=== PATIENT | female | born 1975 | race African-American/Black ===

== ENCOUNTER 2017-01-29 11:32 | Emergency (ER) | payer SELFPAY ==
[2017-01-29 11:38] VITALS: BP 147/112
[2017-01-29] MEDS ORDERED: HYDROCODONE/ACETAMINOPHEN 5-325 MG TABLET PO ONE (13:01)
--- NOTE | 2017-01-29 13:07 | ER Document Report ---
ED Hip Pain/Injury - General Mode of Arrival: Ambulatory Information source: Patient TRAVEL OUTSIDE OF THE [place] IN LAST 30 DAYS: No - HPI Patient complains to provider of: Pain, Hip - right Occurred: This morning Context: Fell/slipped Symptoms since fall: Other - see notes above Associated Symptoms: Other - see notes above - General Chief Complaint: Hip Pain Stated Complaint: HIP PAIN Time Seen by Provider: 01/29/17 12:43 Notes: 41 year old female with history of hypertension and arthritis presents to the ED complaining of right hip pain that started this morning after falling on her right hip yesterday when getting out of the bath tub. Patient states that she did not fall hard on her hip. Patient reports that she was not experiencing any pain immediately after the fall, but woke up this morning with pain from the right hip to right calf and reports to seeing veins bulging out of her right calf. Patient denies taking any medications. (EVA GE) - Related Data Allergies/Adverse Reactions: No Known Allergies Allergy (Verified 01/29/17 11:37) Past Medical History - General Information source: Patient - Social History Smoking Status: Current Every Day Smoker Family History: DM, Hypertension Patient has suicidal ideation: No Patient has homicidal ideation: No - Past Medical History Cardiac Medical History: Reports: Hx Hypertension Renal/ Medical History: Denies: Hx Peritoneal Dialysis Musculoskeltal Medical History: Reports Hx Arthritis, Reports Hx Musculoskeletal Trauma Past Surgical History: Reports: Hx Gynecologic Surgery - Uterine laproscopy for endometriosis - Immunizations Immunizations up to date: Yes Hx Diphtheria, Pertussis, Tetanus Vaccination: Yes Review of Systems - Review of Systems Constitutional: No symptoms reported EENT: No symptoms reported Cardiovascular: No symptoms reported Respiratory: No symptoms reported Gastrointestinal: No symptoms reported Genitourinary: No symptoms reported Female Genitourinary: No symptoms reported Musculoskeletal: See HPI, Joint pain - right hip, Other - right calf tenderness Skin: No symptoms reported Hematologic/Lymphatic: No symptoms reported Neurological/Psychological: No symptoms reported -: Yes All other systems reviewed and negative Physical Exam - General General appearance: Alert In distress: None - HEENT Head: Normocephalic, Atraumatic Eyes: Normal Extraocular movements intact: Yes Pupils: PERRL - Respiratory Respiratory status: No respiratory distress Breath sounds: Normal - Cardiovascular Rhythm: Regular Heart sounds: Normal auscultation - Abdominal Inspection: Normal Distension: No distension Tenderness: Nontender - Back Back: Normal - Extremities General upper extremity: Normal inspection, Normal ROM General lower extremity: Normal ROM. No: Normal inspection - see calf and hip exam below Hip: Tender - right lateral and posterior hip is tender to palpation. No: Normal Calf: Tender - right anterior tibialis muscles is tender to palpation. No: Normal - Neurological Neuro grossly intact: Yes - Psychological Associated symptoms: Normal affect, Normal mood - Skin Skin Temperature: Warm Skin Moisture: Dry Skin Color: Normal Discharge - Discharge Clinical Impression: Contusion of hip Qualifiers: Encounter type: initial encounter Laterality: right Qualified Code(s): S70.01XA - Contusion of right hip, initial encounter Muscle strain, lower leg Qualifiers: Encounter type: initial encounter Laterality: right Qualified Code(s): S86.911A - Strain of unspecified muscle(s) and tendon(s) at lower leg level, right leg, initial encounter Condition: Stable Disposition: HOME, SELF-CARE Additional Instructions: Contusion: Your injury has resulted in a contusion -- a crushing of the deep tissues. No injury to important structures was detected during the physician's exam. Contusions vary in the amount of pain they cause, and in the length of time required for healing. Typically, the area will become bruised, and will remain painful to touch for two or three weeks. However, most patients are back to working and playing within a few days. After the initial period of rest and cold-packs, your symptoms (together with the doctor's recommendations) will determine how rapidly you can get back to full activity. Usually this means "do what feels okay, but don't do things that hurt." If re-examination was recommended, it's important to follow up as instructed. Call the doctor or return any time if pain increases, if swelling becomes severe, if you develop numbness or weakness in an injured extremity, or if any other alarming symptoms occur. USE THE CRUTCHES TO LIMIT WEIGHT BEARING. TAKE THE MEDICATION PRESCRIBED. REST. FOLLOW UP WITH A LOCAL MEDICAL DOCTOR IF NOT IMPROVING. RETURN TO THE EMERGENCY ROOM IF ANY NEW OR WORSENING SYMPTOMS. Prescriptions: Tramadol HCl 50 mg PO QID #20 tablet Forms: Return to Work Scribe Attestation: 01/29/17 14:09 I personally performed the services described in the documentation, reviewed and edited the documentation which was dictated to the scribe in my presence, and it accurately records my words and actions. (ADA ROBBINS) Scribe Documentation - Scribe Written by Armando:: Armando Vazquez, 01/29/2017 1311 acting as scribe for :: Heather
--- NOTE | 2017-01-29 13:49 | RADIOLOGY REPORT (SQ) ---
EXAM DESCRIPTION: FEMUR RIGHT COMPLETED DATE/TIME: 01/29/2017 1:41 pm REASON FOR STUDY: fell on hip last night, pain from hip to leg COMPARISON: None. NUMBER OF VIEWS: Two views. TECHNIQUE: Two radiographic images acquired of the right femur to include hip and knee in at least o ne projection. LIMITATIONS: None. FINDINGS: MINERALIZATION: Normal. BONES: No acute fracture. No worrisome bone lesions. SOFT TISSUES: No obvious swelling or foreign body. OTHER: No other significant finding. IMPRESSION: NEGATIVE STUDY OF THE RIGHT FEMUR. NO RADIOGRAPHIC EVIDENCE OF ACUTE INJURY. TECHNICAL DOCUMENTATION: JOB ID: [id number] [employer]- All Rights Reserved
== END 2017-01-29 14:45 | disposition home or self-care (01) ==
LOC: ER 11:32
DX: S70.01XA Contusion of right hip, initial encounter (principal); S86.911A Strain of unspecified muscle(s) and tendon(s) at lower leg level, right leg, initial encounter; M25.551 Pain in right hip; W19.XXXA Unspecified fall, initial encounter; I10 Essential (primary) hypertension; F17.200 Nicotine dependence, unspecified, uncomplicated
CPT/HCPCS: 99283

== ENCOUNTER 2019-01-31 21:31 | Emergency (ER) | payer SELFPAY ==
--- NOTE | 2019-01-31 22:25 | ER Document Report ---
ED Medical Screen (RME) - General Stated Complaint: ABDOMINAL PAIN Time Seen by Provider: 01/31/19 22:23 Primary Care Provider: WINIFRED FRANCO [Primary Care Provider] - Follow up as needed Notes: Patient is a 43-year-old female presents emergency department with a chief complaint of fever and abdominal pain. She has had a fever for the past 3 days. She started having abdominal pain 2 hours prior to arrival to the emergency department. She says her pain is in her right lower side and radiates to her back. Exam: Tenderness throughout abdomen. I have greeted and performed a rapid initial assessment of this patient. A comprehensive ED assessment and evaluation of the patient, analysis of test results and completion of medical decision making process will be conducted by an additional ED providers. TRAVEL OUTSIDE OF THE [place] IN LAST 30 DAYS: No - Related Data Allergies/Adverse Reactions: No Known Allergies Allergy (Verified 01/29/17 11:37) Past Medical History - Past Medical History Cardiac Medical History: Reports: Hx Hypertension Renal/ Medical History: Denies: Hx Peritoneal Dialysis Musculoskeltal Medical History: Reports Hx Arthritis, Reports Hx Musculoskeletal Trauma Past Surgical History: Reports: Hx Gynecologic Surgery - Uterine laproscopy for endometriosis - Immunizations Immunizations up to date: Yes Hx Diphtheria, Pertussis, Tetanus Vaccination: Yes Physical Exam - Vital signs Vitals: Temp Pulse Resp BP Pulse Ox 98.0 F 82 18 168/104 H 100 01/31/19 21:56 01/31/19 21:56 01/31/19 21:56 01/31/19 21:56 01/31/19 21:56 Course - Vital Signs Vital signs: Temp Pulse Resp BP Pulse Ox 98.0 F 82 18 168/104 H 100 01/31/19 21:56 01/31/19 21:56 01/31/19 21:56 01/31/19 21:56 01/31/19 21:56 Doctor's Discharge - Discharge Referrals: WINIFRED FRANCO [Primary Care Provider] - Follow up as needed
[2019-01-31] MEDS ORDERED: ONDANSETRON HCL INJ/PF 4 MG/2 ML SDV IV ONE (23:55)
[2019-01-31] MEDS ORDERED: MORPHINE SULFATE 10 MG/ML INJ IV ONE (23:55)
[2019-02-01 00:06] LABS: ABSOLUTE BASOPHILS # (AUTO) 0.1 10^3/uL (0.0-0.2); ABSOLUTE EOSINOPHILS # (AUTO) 0.3 10^3/uL (0.0-0.6); ABSOLUTE LYMPHOCYTES (AUTO) 3.3 10^3/uL (0.5-4.7); ABSOLUTE MONOCYTES (AUTO) 0.4 10^3/uL (0.1-1.4); ABSOLUTE NEUT (AUTO) 2.5 10^3/uL (1.7-8.2); BASOPHILS % (AUTO) 1.3 % (0-2); EOSINOPHILS % (AUTO) 4.4 % (0-6); HEMATOCRIT 36.2 % (36.0-47.0); HEMOGLOBIN 11.6 g/dL (12.0-15.5); LYMPHOCYTES % (AUTO) 49.9 % (13-45); MEAN CORPUSCULAR HGB CONC 31.9 g/dL (32.0-36.0); MEAN CORPUSCULAR VOLUME 81 fl (80-97); PLATELET COUNT 412 10^3/uL (150-450); RED BLOOD COUNT 4.46 10^6/uL (3.72-5.28); SEGMENTED NEUTROPHILS % (AUTO) 38.4 % (42-78); TOTAL CELLS COUNTED % (AUTO) 100 %; WHITE BLOOD COUNT 6.6 10^3/uL (4.0-10.5)
[2019-02-01 00:14] LABS: APPEARANCE,URINE CLEAR; BILIRUBIN,URINE NEGATIVE (NEGATIVE); COLOR,URINE STRAW; GLUCOSE, URINE NEGATIVE (NEGATIVE); KETONES,URINE NEGATIVE (NEGATIVE); LEUKOCYTE ESTERASE,URINE NEGATIVE (NEGATIVE); NITRITE,URINE NEGATIVE (NEGATIVE); PROTEIN,URINE NEGATIVE (NEGATIVE); URINE SPECIFIC GRAVITY 1.011; UROBILINOGEN,URINE NEGATIVE mg/dL (<2.0)
[2019-02-01 00:28] LABS: ALANINE AMINOTRANSFERASE 22 U/L (9-52); ALBUMIN 4.9 g/dL (3.5-5.0); ALKALINE PHOSPHATASE 68 U/L (38-126); ANION GAP 8 (5-19); ASPARTATE AMINO TRANSFERASE 30 U/L (14-36); BILIRUBIN,DIRECT 0.2 mg/dL (0.0-0.4); BILIRUBIN,TOTAL 0.2 mg/dL (0.2-1.3); BLOOD UREA NITROGEN 17 mg/dL (7-20); CALCIUM 10.4 mg/dL (8.4-10.2); CARBON DIOXIDE 29 mmol/L (22-30); CHLORIDE 103 mmol/L (98-107); GLUCOSE 83 mg/dL (75-110); POTASSIUM 4.8 mmol/L (3.6-5.0); SODIUM 139.7 mmol/L (137-145); TOTAL PROTEIN 7.9 g/dL (6.3-8.2)
[2019-02-01] MEDS ORDERED: NORMAL SALINE 1000 ML 1,000 ML IV ONE (00:37)
[2019-02-01] MEDS ORDERED: METOCLOPRAMIDE HCL INJ/PF 10 MG/2 ML SDV IV ONE (01:13)
--- NOTE | 2019-02-01 02:20 | ER Document Report ---
ED General - General Chief Complaint: Headache Stated Complaint: ABDOMINAL PAIN Time Seen by Provider: 01/31/19 22:23 Primary Care Provider: [facility],WIN[facility]RED [NO LOCAL MD] - Follow up as needed Notes: Patient is a 43-year-old female with a past medical history of essential hypertension who presents with multiple complaints. Her primary complaint that brings her to the emergency department today is 24 hours of abdominal pain that is generalized in nature but most localized to her right lower quadrant. She describes this as a throbbing, aching, severe discomfort started gradually and has worsened since onset. She states that she is also had "fever" at home although notes that she has not recorded temperature at any point at home. She states also since arriving here in the emergency department she had a relatively abrupt onset of a global, throbbing, aching, severe headache. States she does not typically get headaches and that this is quite unusual for her. She has had some nausea but no vomiting with her symptoms. Denies history of similar symptoms in the past. Has not seen her primary care physician regarding today's concerns. She is also requesting a refill of her hypertensive medications. TRAVEL OUTSIDE OF THE [place] IN LAST 30 DAYS: No - Related Data Allergies/Adverse Reactions: No Known Allergies Allergy (Verified 01/29/17 11:37) Past Medical History - General Information source: Patient - Social History Smoking Status: Never Smoker Frequency of alcohol use: None Drug Abuse: None Lives with: Family Family History: DM, Hypertension Patient has suicidal ideation: No Patient has homicidal ideation: No - Past Medical History Cardiac Medical History: Reports: Hx Hypertension Renal/ Medical History: Denies: Hx Peritoneal Dialysis Musculoskeletal Medical History: Reports Hx Arthritis, Reports Hx Musculoskeletal Trauma Past Surgical History: Reports: Hx Gynecologic Surgery - Uterine laproscopy for endometriosis - Immunizations Immunizations up to date: Yes Hx Diphtheria, Pertussis, Tetanus Vaccination: Yes Review of Systems - Review of Systems Notes: Constitutional: Negative for fever. HENT: Negative for sore throat. Eyes: Negative for visual changes. Cardiovascular: Negative for chest pain. Respiratory: Negative for shortness of breath. Gastrointestinal: Positive for abdominal pain and nausea Genitourinary: Negative for dysuria. Musculoskeletal: Negative for back pain. Skin: Negative for rash. Neurological: Positive for headache 10 point ROS negative except as marked above and in HPI. Physical Exam - Vital signs Vitals: Temp Pulse Resp BP Pulse Ox 98.0 F 82 18 168/104 H 100 01/31/19 21:56 01/31/19 21:56 01/31/19 21:56 01/31/19 21:56 01/31/19 21:56 Interpretation: Hypertensive Notes: PHYSICAL EXAMINATION: GENERAL: Well-appearing, well-nourished and in no acute distress. HEAD: Atraumatic, normocephalic. EYES: Pupils equal round and reactive to light, extraocular movements intact, sclera anicteric, conjunctiva are normal. ENT: nares patent, oropharynx clear without exudates. Moist mucous membranes. NECK: Normal range of motion, supple without lymphadenopathy LUNGS: Breath sounds clear to auscultation bilaterally and equal. No wheezes rales or rhonchi. HEART: Regular rate and rhythm without murmurs ABDOMEN: Soft, mild tenderness to the right upper, right middle and right lower quadrants, otherwise no localized areas of tenderness. Normoactive bowel sounds. No guarding, no rebound. No masses appreciated. EXTREMITIES: Normal range of motion, no pitting or edema. No cyanosis. NEUROLOGICAL: Face symmetric. Tongue protrudes midline. Extraocular motions intact. Pupils are 2 mm and equally reactive. Normal speech, normal gait. 5 out of 5 strength in both the distal and proximal upper and lower extremities bi laterally. Sensation is grossly intact throughout. Finger to nose testing normal. Pronator drift normal. PSYCH: Normal mood, normal affect. SKIN: Warm, Dry, normal turgor, no rashes or lesions noted. Course - Re-evaluation Re-evalutation: 02/01/19 02:16 Patient presents with multiple and varying complaints. The patient initially complains to me that she is having a headache although this is very different than her complaint in triage which was abdominal pain the patient then clarifies that she began having a headache after she arrived here in the emergency department and that this is unlike any headache she is ever had before in the past. She has no focal neurologic deficits on exam although given that she is describing the headache as being acute in onset and severe in nature with no history of the same she is a CT scan of her head will be obtained to definitively exclude subarachnoid hemorrhage. I have a low clinical suspicion for this diagnosis and the patient is well within the 6-hour window. If CT is n ormal not further pursue at this point. The patient is also complaining of 1 day of right lower quadrant abdominal pain and 3 days of subjective fever. The patient is clear to state that she has not actually recorded a fever at home as she does not have a thermometer. On abdominal exam she does have some mild focal tenderness to her right upper and right lower quadrants without rebound or guarding. Labs broadly unremarkable. Given patient's focal tenderness to the right lower quadrant CT scan of the abdomen pelvis to be obtained to definitively exclude appendicitis. 02/01/19 03:33 CT scan abdomen pelvis unremarkable with exception of constipation. CT head unremarkable. Have advised laxatives at home. At this time will discharge with return precautions and follow-up recommendations. Verbal discharge instructions given a the bedside and opportunity for questions given. Medication warnings reviewed. Patient is in agreement with this plan and has verbalized understanding of return precautions and the need for primary care follow-up in the next 24-72 hours. - Vital Signs Vital signs: Temp Pulse Resp BP Pulse Ox 98.0 F 82 18 128/75 H 99 01/31/19 21:56 01/31/19 21:56 01/31/19 21:56 02/01/19 02:16 02/01/19 03:00 - Laboratory Result Diagrams: 01/31/19 23:55 01/31/19 23:55 Laboratory results interpreted by me: 01/31/19 01/31/19 01/31/19 23:55 23:55 23:55 Hgb 11.6 L MCH 26.0 L MCHC 31.9 L RDW 18.0 H Seg Neutrophils % 38.4 L Lymphocytes % 49.9 H Creatinine 1.32 H Est GFR ( Amer) 53 L Est GFR (Non-Af Amer) 44 L Calcium 10.4 H Urine Ascorbic Acid 40 H - Diagnostic Test Radiology reviewed: Image reviewed, Reports reviewed Radiology results interpreted by me: 02/01/19 03:34 CT head: No acute intercranial bleed or mass Discharge - Discharge Clinical Impression: Right lower quadrant abdominal pain Acute headache Qualifiers: Headache type: unspecified Intractability: not intractable Qualified Code(s): R51 - Headache Constipation Qualifiers: Constipation type: unspecified constipation type Qualified Code(s): K59.00 - Constipation, unspecified Condition: Good Disposition: HOME, SELF-CARE Additional Instructions: Your CT scan of the abdomen and pelvis as well as a CT scan of your head are both normal. Your labs are also normal. Your CT scan does show significant constipation which could be part of the reason you are having abdominal pain. Take 1 capful of MiraLAX in the morning and at night to help relieve your symptoms. You need to follow-up with your primary care doctor within the next 24 to 48 hours. Return to the emergency department immediately if you have worsening of your pain, fever greater than 100.4 F, persistent vomiting, pass out, or have any other symptoms that are worrisome to you. Prescriptions: Hydrochlorothiazide [Hydrodiuril 25 mg Tablet] 25 mg PO QAM #30 tablet Lisinopril [Prinivil] 10 mg PO QAM #30 tablet Referrals: [facility] [NO LOCAL MD] - Follow up as needed
--- NOTE | 2019-02-01 02:47 | RADIOLOGY REPORT (SQ) ---
EXAM DESCRIPTION: CT HEAD WITHOUT IV CONTRAST COMPLETED DATE/TME: 02/01/2019 01:58 CLINICAL HISTORY: 43 years Female, acute onset headache COMPARISON: None. TECHNIQUE: No contrast. Coronal and sagittal reformat. This exam was performed according to our departmental dose-optimization program, which includes automated exposure control, adjustment of the mA and/or kV according to patient size and/or use of iterative reconstruction technique. FINDINGS: No hemorrhage or infarct. No mass, mass effect, or midline shift. Brain and extra-axial structures appear intact. IMPRESSION: Normal CT of the head.
--- NOTE | 2019-02-01 03:00 | RADIOLOGY REPORT (SQ) ---
CLINICAL HISTORY: rlq ab pain COMPARISON: None. TECHNIQUE: CT ABDOMEN PELVIS WITH IV CONTRAST on 02/01/2019 1:58 AM CDT This exam was performed according to our departmental dose-optimization program, which includes automated exposure control, adjustment of the mA and/or kV according to patient size and/or use of iterative reconstruction technique. FINDINGS: Lower lungs are clear. Abdomen: There is a hemangioma within the posterior medial right lobe of the liver measuring 3.4 cm. There is no biliary dilatation. Gallbladder is normal in appearance. The pancreas and spleen are normal in appearance. The adrenal glands and kidneys are unremarkable. Abdominal aorta is normal in course and caliber without aneurysm. There is no free air. There is no retroperitoneal adenopathy. Pelvis: There is large amount stool throughout the colon. Urinary bladder is unremarkable. There is no free fluid. Uterus is normal in size. Appendix is normal. Skeleton: There are no acute osseous findings. No suspicious bony lesions. IMPRESSION: Constipation. No acute inflammatory process. Normal appendix.
[2019-02-01] MEDS ORDERED: LACTULOSE SYRUP 20 GM/30 ML UDCUP PO ONE (03:34)
[2019-02-01 04:27] VITALS: BP 135/82
== END 2019-02-01 04:01 | disposition home or self-care (01) ==
LOC: ER 21:31
DX: Z76.0 Encounter for issue of repeat prescription (principal); R10.31 Right lower quadrant pain; K59.00 Constipation, unspecified; R51 Headache; R10.9 Unspecified abdominal pain; I10 Essential (primary) hypertension
CPT/HCPCS: 99284; 96361; 96374; 96375; 36415; 85025; 81025; 80053; 81001; 70450; 74177; J2765; J2270; J2405; J7030

== ENCOUNTER 2020-01-09 01:14 | Emergency (ER) | payer SELFPAY ==
[2020-01-09] MEDS ORDERED: ACETAMINOPHEN 325 MG TABLET PO ONE (02:56)
[2020-01-09] MEDS ORDERED: ACETAMINOPHEN 325 MG TABLET ONE (03:00)
--- NOTE | 2020-01-09 03:46 | RADIOLOGY REPORT (SQ) ---
EXAM DESCRIPTION: AP pelvis with additional view of left hip RadLex: XR HIP 2 OR MORE VIEWS Views: 2 CLINICAL HISTORY: 44 years Female; hip pain; pain x3 days. Pain runs from left hip down leg COMPARISON: None. FINDINGS: Negative for acute fracture, dislocation, or radiopaque foreign body. No lytic bone changes or periosteal reaction. IMPRESSION: 1. No acute findings.
[2020-01-09] MEDS ORDERED: IBUPROFEN 800 MG TABLET PO ONE (08:27)
[2020-01-09] MEDS ORDERED: HYDROMORPHONE HCL INJ/PF 2 MG/ML AMPULE IM ONE (08:27)
--- NOTE | 2020-01-09 08:29 | ER Document Report ---
HPI - HPI Patient complains to provider of: Left hip pain Time Seen by Provider: 01/09/20 08:15 Onset: Other - 2 days Onset/Duration: Persistent Quality of pain: Sharp Pain Level: 5 Context: Patient presents with left hip pain for the past 2 days. Patient denies any injury. Patient denies any fever. Patient denies any urinary retention or incontinence. No history of IV drug use. Patient also has a history of hypertension and has been out of her blood pressure medicine for a while and is requesting a refill. Associated Symptoms: Other - Low back pain. denies: Fever, Nausea, Vomiting Exacerbated by: Movement, Walking Relieved by: Denies Similar symptoms previously: No Recently seen / treated by doctor: No - ROS ROS below otherwise negative: Yes Systems Reviewed and Negative: Yes All other systems reviewed and negative - CONSTITUTIONAL Constitutional: DENIES: Fever - EENT EENT: - NEURO Neurology: DENIES: Headache - RESPIRATORY Respiratory: DENIES: Trouble Breathing, Coughing - GASTROINTESTINAL Gastrointestinal: DENIES: Nausea, Patient vomiting - URINARY Urinary: DENIES: Dysuria, Urgency, Frequency - REPRODUCTIVE Reproductive: DENIES: : - MUSCULOSKELETAL Musculoskeletal: REPORTS: Extremity pain - DERM Skin Color: Normal Skin Problems: None Past Medical History - General Information source: Patient - Social History Smoking Status: Never Smoker Frequency of alcohol use: None Drug Abuse: None Occupation: Foodservice Family History: DM, Hypertension Patient has homicidal ideation: No - Past Medical History Cardiac Medical History: Reports: Hx Hypertension Neurological Medical History: Reports: Hx Cerebrovascular Accident Renal/ Medical History: Denies: Hx Peritoneal Dialysis Musculoskeletal Medical History: Reports Hx Arthritis, Reports Hx Musculoskeletal Trauma Past Surgical History: Reports: Hx Gynecologic Surgery - Uterine laproscopy for endometriosis - Immunizations Immunizations up to date: Yes Hx Diphtheria, Pertussis, Tetanus Vaccination: Yes Vertical Provider Document - CONSTITUTIONAL Agree With Documented VS: Yes Exam Limitations: No Limitations General Appearance: WD/WN, No Apparent Distress Notes: PHYSICAL EXAMINATION: GENERAL: Well-appearing, well-nourished and in no acute distress. HEAD: Atraumatic, normocephalic. EYES: sclera clear, anicteric, conjunctiva are normal. ENT: nares patent, Moist mucous membranes. NECK: Normal range of motion, supple no lymphadenopathy LUNGS: respirations unlabored HEART: Regular rate and rhythm without murmurs EXTREMITIES: Normal range of motion, no pitting or edema. No cyanosis. Left anterior posterior hip joint tenderness, pt ambulates without difficulty BACK: Lower lumbar midline tenderness, left SI joint tenderness, no deformities or step-offs. No CVA tenderness. NEUROLOGICAL: Cranial nerves grossly intact. Normal speech. No saddle anesthesia. No foot drop PSYCH: Normal mood, normal affect. SKIN: Warm, Dry, normal turgor, no rashes or lesions noted. - INFECTION CONTROL TRAVEL OUTSIDE OF THE [place] IN LAST 30 DAYS: No Course - Re-evaluation Re-evalutation: 01/09/20 09:30 The patient presents with low back pain without signs of spinal cord compression, cauda equina syndrome, infection, aneurysm, or other serious etiology. The patient is neurologically intact. Given the extremely risk of these diagnoses further testing and evaluation for these possibilities does not appear to be indicated at this time. Patient has been instructed to return if the symptoms worsen or change in any way. - Vital Signs Vital signs: Temp Pulse Resp BP Pulse Ox 98.1 F 81 16 140/95 H 100 01/09/20 02:50 01/09/20 01:20 01/09/20 01:20 01/09/20 01:20 01/09/20 01:20 - Diagnostic Test Radiology reviewed: Reports reviewed Discharge - Discharge Clinical Impression: Left hip pain Low back pain Qualifiers: Chronicity: acute Back pain laterality: left Sciatica presence: with sciatica Sciatica laterality: sciatica of left side Qualified Code(s): M54.42 - Lumbago with sciatica, left side Hypertension Qualifiers: Hypertension type: unspecified Qualified Code(s): I10 - Essential (primary) hypertension Condition: Stable Disposition: HOME, SELF-CARE Instructions: Low Back Pain ([facility]), Sciatica ([facility]) Additional Instructions: Return immediately for any new or worsening symptoms Followup with your primary care provider, call tomorrow to make a followup appointment Prescriptions: Prednisone [Deltasone 20 mg Tablet] 3 tab PO DAILY 5 Days #15 tablet Lidocaine [Lidoderm 5% (700 mg) Transdermal Patch] 1 patch TP DAILY PRN #10 adh..patch PRN Reason: Hydrocodone/Acetaminophen [Irmo 5-325 mg Tablet] 1 tab PO Q6 PRN #15 tablet PRN Reason: Lisinopril [Prinivil] 10 mg PO DAILY #30 tablet Forms: Return to Work Referrals: WINIFRED [facility] [Provider Group] - Follow up as needed [facility] [Provider Group] - Follow up as needed [facility] [Provider Group] - Follow up as needed
--- NOTE | 2020-01-09 09:04 | RADIOLOGY REPORT (SQ) ---
EXAM DESCRIPTION: L SPINE WHOLE IMAGES COMPLETED DATE/TIME: 01/09/2020 8:47 am REASON FOR STUDY: low back, L hip pain COMPARISON: CT of the abdomen and pelvis with contrast from 02/01/2019. NUMBER OF VIEWS: Five views including obliques. TECHNIQUE: AP, lateral, oblique, and sacral radiographic images acquired of the lumbar spine. LIMITATIONS: None. FINDINGS: MINERALIZATION: Normal. SEGMENTATION: There are 5 lumbar-type vertebral bodies. There is transitional S1 segment. ALIGNMENT: Normal. VERTEBRAE: The lumbar vertebral body heights are preserved. There is no fracture. DISCS: The intervertebral disc space heights are preserved. There is no endplate irregularity or ost eophyte formation. POSTERIOR ELEMENTS: Intact. There is no pars interarticularis defect. HARDWARE: None in the spine. PARASPINAL SOFT TISSUES: Normal. PELVIS: Intact. OTHER: No other finding. IMPRESSION: No acute fracture or malalignment of the lumbar spine. TECHNICAL DOCUMENTATION: JOB ID: [id number] 2010 [employer]- All Rights Reserved Reading location - IP/workstation name: [email or web address]
[2020-01-09 09:52] VITALS: BP 140/90
== END 2020-01-09 09:52 | disposition home or self-care (01) ==
LOC: ER 01:14
DX: M54.42 Lumbago with sciatica, left side (principal); M25.552 Pain in left hip; I10 Essential (primary) hypertension
CPT/HCPCS: 99283; 96372; 73502; 72110; J1170